=== PATIENT | female | born 1960 | race Caucasian/White ===

== ENCOUNTER 2017-07-17 13:01 | Emergency (ER) | payer OTHER ==
[~2017-07-17] VITALS: Wt 79.0 kg
[2017-07-17] MEDS ORDERED: ASPIRIN 325 MG TAB PO STA (15:07)
--- NOTE | 2017-07-17 15:21 | ERA ---
ER Documentation Chief Complaint Date/Time DATE: 07/17/17 TIME: 15:08 Chief Complaint CHEST PAIN X 5 DAYS HPI This is a 57-year-old female with a history of a brain tumor status post resection with chronic residual left-sided deficits who is presenting with left- sided chest tightness and discomfort radiating to the back and into the left neck for approximately 5 days. The patient takes care of her sister who reportedly is unable to care for herself. 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 She is unsure if this could be related to a muscular injury. She initially thought that maybe it was, but it was not going away. It did not come and go, but it has been more or less constant. Over the last day or so, she felt that the pain was getting worse, which prompted her desire to be evaluated in the emergency department. The patient denies headache or vision changes. She has not felt sick recently. She has had no fever or chills. She does not endorse shortness of breath. She does not endorse any diaphoresis. She does not endorse any lightheadedness or dizziness. She does endorse general fatigue. She does not endorse any abdominal pain. She has not had any changes to bowel movements or urination. She does have decreased sensation and strength on the left side with a left- sided facial droop, which has been present since her surgery when she was in her 20s to remove her brain tumor. She has no new focal deficits. She does not have any new or worsening weakness or numbness or tingling to the face or extremities. ROS All systems reviewed and are negative except as per history of present illness. Medications Home Meds No Active Prescriptions or Reported Meds Allergies Allergies: Coded Allergies: No Known Allergy (Unverified , 07/17/17) PMhx/Soc History of Surgery: Yes (Brain Tumor Resection) Anesthesia Reaction: No Hx Neurological Disorder: Yes (Brain Tumor sp removal with residual left sided deficits) Hx Respiratory Disorders: No Hx Cardiac Disorders: No Hx Psychiatric Problems: No Hx Miscellaneous Medical Probl: No Hx Alcohol Use: Yes (occasional) Hx Substance Use: No Hx Tobacco Use: Yes Smoking Status: Current every day smoker (1/2 PPD) FmHx Family History: No coronary disease, No diabetes Physical Exam Vitals Vital Signs Date Time Temp Pulse Resp B/P Pulse Ox O2 Delivery O2 Flow Rate FiO2 07/17/17 17:24 71 20 150/68 98 Room Air 07/17/17 17:17 Nasal Cannula 2 07/17/17 13:07 98.0 79 18 194/94 100 Physical Exam Const: NAD Head: Atraumatic Eyes: Normal Conjunctiva ENT: Normal External Ears, Nose and Mouth. Neck: Full range of motion..~ No meningismus. Resp: Clear to auscultation bilaterally Cardio: Regular rate and rhythm, no murmurs Abd: Soft, non tender, non distended. Normal bowel sounds Skin: No petechiae or rashes Back: No midline or flank tenderness Ext: No cyanosis, or edema Neur: Awake and alert, Oriented x4, LUE and LLE 4+/5 strength, L facial droop , left sided decreased sensation, mild dyskinesia with LUE, unchanged for 20-30 years Psych: Normal Mood and Affect Result Diagram: 07/17/17 1635 07/17/17 1635 Results 24 hrs Laboratory Tests Test 07/17/17 16:35 White Blood Count 4.410^3/ul Red Blood Count 5.2610^6/ul Hemoglobin 13.4g/dl Hematocrit 44.0% Mean Corpuscular Volume 83.7fl Mean Corpuscular Hemoglobin 25.5pg Mean Corpuscular Hemoglobin Concent 30.5g/dl Red Cell Distribution Width 13.6% Platelet Count 90533^3/UL Mean Platelet Volume 11.6fl Neutrophils % 46.0% Lymphocytes % 45.1% Monocytes % 5.9% Eosinophils % 2.1% Basophils % 0.9% Nucleated Red Blood Cells % 0.0/100WBC Neutrophils # (Manual) 2.010^3/ul Lymphocytes # 2.010^3/ul Monocytes # 0.310^3/ul Eosinophils # 0.110^3/ul Basophils # 0.010^3/ul Nucleated Red Blood Cells # 0.010^3/ul Sodium Level 146mmol/L Potassium Level 3.8mmol/L Chloride Level 102mmol/L Carbon Dioxide Level 29mmol/L Anion Gap 19 Blood Urea Nitrogen 11mg/dl Creatinine 0.66mg/dl Glucose Level 84mg/dl Calcium Level 9.3mg/dl Troponin I < 0.012ng/ml Current Medications Medications (Trade) Dose Ordered Sig/Pascual Route PRN Reason Start Time Stop Time Status Last Admin Dose Admin Aspirin (Aspirin) 325 mg ONCE STAT PO 07/17/17 15:07 07/17/17 15:09 DC 07/17/17 15:53 Procedures/MDM The patient's presentation warrants a cardiac workup. The patient's symptoms could be cardiac in nature, which is why a workup is warranted. The patient's vital signs are normal. She is not on any hormonal medications. She does not have any calf pain or swelling. She has had no recent travel. She has had no recent hospitalizations. She has not been bedbound for any significant time. She does not have a history of DVT or PE. My suspicion for a pulmonary embolism is low.There are no clinical findings to suggest pneumonia. The patient's blood work was obtained and reviewed. The patient's CBC and CMP are unremarkable. The patient's troponin is negative. The patient's chest x-ray showed the following, read by the radiologist: PROCEDURE: Chest xray. CLINICAL INDICATION: Chest pain TECHNIQUE: A portable semiupright AP view of the chest was obtained. COMPARISON: None. FINDINGS: The cardiomediastinal silhouette is within normal limits. The lungs are well expanded and show normal vascularity. No focal opacity, pleural effusion, or pneumothorax is identified. The skeletal structures and soft tissues are unremarkable. IMPRESSION: No acute intrathoracic abnormality. .Sinai Chisholm MD, Date Time Electronically viewed and signed by .Sinai Chisholm MD, on 07/17/2017 16: 05 EKG read by me: Rate/Rhythm: Regular rate and rhythm at a rate of 63 bpm Intervals: Normal [place]: Normal Impression: No evidence of ischemia or arrhythmia. Normal EKG. The patient was given full dose aspirin in the emergency department. At this time, the patient's heart score is 1 for age. The patient does not endorse any risk factors. She has no known family history. Given that this is been going on for 5 days, my suspicion is slight. The patient's EKG is completely normal with no signs of ischemia. The patient's troponin is negative. At this time, I feel that the patient is safe for discharge. She needs to follow-up with the primary care doctor in 1-3 days for reevaluation. She will be given precautions with which to return to the emergency department. Departure Diagnosis: Primary Impression: Chest pain Qualified Code: R07.9 - Chest pain, unspecified type Condition: Stable Patient Instructions: Chest Pain, Uncertain Cause Additional Instructions: Please follow-up with your doctor in 1-3 days. You may require an outpatient stress test, but this decision will be deferred to your doctor. Please return to the emergency department for worsening pain or any other concerns. Thank you for for coming to [facility] for your care today. Please ask your nurse or provider if you have questions about your care today and do not leave until all your questions have been answered. Please use any medications given as directed and follow-up with your doctor (or the doctor you were referred to) in the next 2-3 days. If you do not have a primary care doctor you may follow up at the [facility] (listed below). You may also use motrin and tylenol as needed for fever and/or pain unless instructed otherwise by your provider or nurse. Indications for more urgent follow-up have been discussed, but you may return to the Emergency Department at ANY time for any worrisome or worsening symptoms. If you have abdominal pain, please know that no test or exam you received is perfect and you should follow up within 8 hours for continued pain. If you had any imaging studies today, such as an X-Ray or CT Scan, these studies will be reviewed later by a radiologist. You will be called if there are important findings that were not identified today, so make sure the contact information you provided at registration is correct. If you received any narcotic pain control medicine today, such as Vicodin, Morphine or Dilaudid, your coordination and judgment may be affected for a number of hours. Please do not drive or operate heavy machinery, and you may want someone to assist you at home. If you were given a prescription for narcotic medication, be aware that it is very addictive- use sparingly and only if necessary. CASEY MCCONNELL MD Jul 17, 2017 15:19
--- NOTE | 2017-07-17 16:05 | RADRPT ---
PROCEDURE: Chest xray. CLINICAL INDICATION: Chest pain TECHNIQUE: A portable semiupright AP view of the chest was obtained. COMPARISON: None. FINDINGS: The cardiomediastinal silhouette is within normal limits. The lungs are well expanded and show norm al vascularity. No focal opacity, pleural effusion, or pneumothorax is identified. The skeletal st ructures and soft tissues are unremarkable. IMPRESSION: No acute intrathoracic abnormality. RPTAT:PP .Sinai Chisholm MD, Date Time Electronically viewed and signed by .Sinai Chisholm MD, on 07/17/2017 16:05 .K/
[2017-07-17 16:43] LABS: BASOPHILS % 0.9 % (0.0-2.0); EOSINOPHILS # 0.1 10^3/ul (0.0-0.5); EOSINOPHILS % 2.1 % (0.0-7.0); HEMOGLOBIN 13.4 g/dl (12.0-16.0); LYMPHOCYTES % 45.1 % (15.0-51.0); MEAN CORPUSCULAR HEMOGLOBIN 25.5 pg (29.0-33.0); MEAN CORPUSCULAR HGB CONC 30.5 g/dl (32.0-37.0); MEAN CORPUSCULAR VOLUME 83.7 fl (82.0-101.0); MEAN PLATELET VOLUME 11.6 fl (7.4-10.4); MONOCYTE # 0.3 10^3/ul (0.3-0.9); MONOCYTES % 5.9 % (0.0-11.0); PLATELET COUNT 209 10^3/UL (140-415); RED BLOOD COUNT 5.26 10^6/ul (4.20-5.40); RED CELL DISTRIBUTION WIDTH 13.6 % (11.5-14.5); WHITE BLOOD COUNT 4.4 10^3/ul (4.8-10.8)
[2017-07-17 17:05] LABS: ANION GAP 19 (8-16); BLOOD UREA NITROGEN 11 mg/dl (7-20); CALCIUM 9.3 mg/dl (8.4-10.2); CARBON DIOXIDE 29 mmol/L (21-31); CHLORIDE 102 mmol/L (97-110); CREATININE 0.66 mg/dl (0.44-1.00); GLUCOSE 84 mg/dl (70-220); POTASSIUM 3.8 mmol/L (3.5-5.1); SODIUM 146 mmol/L (135-144)
[2017-07-17 17:23] LABS: TROPONIN-I < 0.012 ng/ml (0.00-0.12)
[2017-07-17 17:24] VITALS: BP 150/68; PULSE 71; RESP 20
== END 2017-07-17 18:48 | disposition left against medical advice (07) ==
LOC: E/R 13:01
DX: R07.9 Chest pain, unspecified (principal); F17.210 Nicotine dependence, cigarettes, uncomplicated
CPT/HCPCS: 36415; 71010; 80048; 84484; 85025; 93005; Z7502; Z7610

== ENCOUNTER 2018-01-03 06:14 | Day surgery (SDC) | END 2018-01-03 11:08 | disposition home or self-care (01) ==